=== PATIENT | male | born 1945 | race Caucasian/White ===

== ENCOUNTER → 2016-04-07 | Outpatient (CLI) | payer MEDICARE, OTHER | LOC: OD 11:30 | PROVIDERS: ATTEND Radiology Radiation Oncology | DX: C61 Malignant neoplasm of prostate (principal); R97.20 Elevated prostate specific antigen [PSA] | CPT/HCPCS: 36415; 84153 ==

== ENCOUNTER → 2016-07-07 | Outpatient (CLI) | payer MEDICARE, OTHER | LOC: OD 10:55 | PROVIDERS: ATTEND Radiology Radiation Oncology | DX: C61 Malignant neoplasm of prostate (principal); R97.20 Elevated prostate specific antigen [PSA] | CPT/HCPCS: 36415; 84153 ==

== ENCOUNTER → 2016-10-07 | Outpatient (CLI) | payer MEDICARE, OTHER | LOC: OD 11:35 | PROVIDERS: ATTEND Radiology Radiation Oncology | DX: C61 Malignant neoplasm of prostate (principal); R97.20 Elevated prostate specific antigen [PSA] | CPT/HCPCS: 36415; 84153 ==

== ENCOUNTER → 2017-01-06 | Outpatient (CLI) | payer MEDICARE, OTHER | LOC: OD 14:22 | PROVIDERS: ATTEND Radiology Radiation Oncology | DX: C61 Malignant neoplasm of prostate (principal); R97.21 Rising PSA following treatment for malignant neoplasm of prostate | CPT/HCPCS: 36415; 84153 ==

== ENCOUNTER → 2017-06-08 | Outpatient (CLI) | payer MEDICARE, OTHER | LOC: OD 11:00 | PROVIDERS: ATTEND Radiology Radiation Oncology | DX: C61 Malignant neoplasm of prostate (principal); R97.20 Elevated prostate specific antigen [PSA] | CPT/HCPCS: 36415; 84153 ==

== ENCOUNTER 2017-07-23 19:47 | Emergency (ER) | payer MEDICARE, OTHER ==
[2017-07-23 21:32] LABS: ABSOLUTE EOSINOPHILS # (AUTO) 0.1 10^3/uL (0.0-0.6); ABSOLUTE LYMPHOCYTES (AUTO) 0.9 10^3/uL (0.5-4.7); ABSOLUTE NEUT (AUTO) 5.3 10^3/uL (1.7-8.2); BASOPHILS % (AUTO) 0.4 % (0-2); EOSINOPHILS % (AUTO) 1.4 % (0-6); HEMATOCRIT 37.6 % (37.9-51.0); HEMOGLOBIN 13.1 g/dL (13.5-17.0); LYMPHOCYTES % (AUTO) 12.4 % (13-45); MEAN CORPUSCULAR HEMOGLOBIN 34.7 pg (27.0-33.4); MEAN CORPUSCULAR HGB CONC 34.9 g/dL (32.0-36.0); MEAN CORPUSCULAR VOLUME 99 fl (80-97); MONOCYTES % (AUTO) 13.4 % (3-13); PLATELET COUNT 168 10^3/uL (150-450); RED BLOOD COUNT 3.79 10^6/uL (4.35-5.55); RED CELL DISTRIBUTION WIDTH 12.3 % (11.5-14.0); SEGMENTED NEUTROPHILS % (AUTO) 72.4 % (42-78); TOTAL CELLS COUNTED % (AUTO) 100 %; WHITE BLOOD COUNT 7.4 10^3/uL (4.0-10.5)
[2017-07-23] MEDS ORDERED: MAG HYDROX/AL HYDROX/SIMETH SUSP 30 ML UDCUP PO ONE (21:46)
[2017-07-23] MEDS ORDERED: METOCLOPRAMIDE HCL ORAL SOLN 10 MG/10 ML UDCUP PO ONE (21:46)
[2017-07-23] MEDS ORDERED: LORAZEPAM 1 MG TABLET PO ONE (21:46)
[2017-07-23] MEDS ORDERED: LIDOCAINE 2% VISCOUS SOLN 20 ML UDCUP PO ONE (21:46)
[2017-07-23 21:52] LABS: ANION GAP 9 (5-19); BLOOD UREA NITROGEN 18 mg/dL (7-20); CALCIUM 9.5 mg/dL (8.4-10.2); CARBON DIOXIDE 32 mmol/L (22-30); CHLORIDE 101 mmol/L (98-107); GLUCOSE 110 mg/dL (75-110); POTASSIUM 3.7 mmol/L (3.6-5.0); SODIUM 141.9 mmol/L (137-145)
--- NOTE | 2017-07-23 21:52 | ER Document Report ---
ED General - General Chief Complaint: Chest Pain Stated Complaint: CHEST PAIN Time Seen by Provider: 07/23/17 20:29 Notes: Patient is a 71-year-old male with a past medical history of hypertension, hyperlipidemia, who presents with 3 days of epigastric abdominal discomfort and intermittent chest burning since eating "bad shrimp cocktail sauce". He describes it as a burning, heaviness sensation in his upper abdomen and lower chest. He notes that he has been belching and having a bitter taste in the back of his mouth. He has not turning to improve his symptoms. Nothing worsens his symptoms. Symptoms have overall been improving since onset. He denies any associated nausea, vomiting, diaphoresis or shortness of breath. No pain radiating to the arms, jaw or back. Patient also notes that he has had 1 week of throbbing, constant, aching pain to his left ankle that has been worsening after he apparently fell and twisted the area. He has not yet seen his general doctor regarding any of the above concerns. TRAVEL OUTSIDE OF THE [place] IN LAST 30 DAYS: No Past Medical History - General Information source: Patient - Social History Smoking Status: Never Smoker Frequency of alcohol use: None Drug Abuse: None Lives with: Spouse/Significant other Family History: Reviewed & Not Pertinent Review of Systems - Review of Systems Notes: Constitutional: Negative for fever. HENT: Negative for sore throat. Eyes: Negative for visual changes. Cardiovascular: Positive for chest pain. Respiratory: Negative for shortness of breath. Gastrointestinal: Positive for epigastric abdominal pain Genitourinary: Negative for dysuria. Musculoskeletal: Positive for left ankle pain Skin: Negative for rash. Neurological: Negative for headaches, weakness or numbness. 10 point ROS negative except as marked above and in HPI. Physical Exam - Vital signs Vitals: Temp Pulse Resp BP Pulse Ox 97.7 F 76 20 117/81 96 07/23/17 20:09 07/23/17 20:09 07/23/17 20:09 07/23/17 20:07/23/17 20:09 Interpretation: Normal Notes: PHYSICAL EXAMINATION: GENERAL: Well-appearing, well-nourished and in no acute distress. HEAD: Atraumatic, normocephalic. EYES: Pupils equal round and reactive to light, extraocular movements intact, sclera anicteric, conjunctiva are normal. ENT: nares patent, oropharynx clear without exudates. Moist mucous membranes. NECK: Normal range of motion, supple without lymphadenopathy LUNGS: Breath sounds clear to auscultation bilaterally and equal. No wheezes rales or rhonchi. HEART: Regular rate and rhythm without murmurs ABDOMEN: Soft, nontender, normoactive bowel sounds. No guarding, no rebound. No masses appreciated. EXTREMITIES: Mild swelling and edema to the left ankle with limited dorsi and plantar flexion secondary to pain NEUROLOGICAL: No focal neurological deficits. Moves all extremities spontaneously and on command. PSYCH: Normal mood, normal affect. SKIN: Warm, Dry, normal turgor, ecchymosis over the lateral malleolus of the left ankle Course - Re-evaluation Re-evalutation: 07/23/17 21:47 Patient presents with abdominal bloating and chest burning for the past 3 days ever since he ate "bad cocktail sauce". Low clinical suspicion for ACS given clinical history, exam, EKG without ST elevations or depressions, and negative initial troponin. HEART score less than or equal to 3. PE also seems unlikely given clinical history, absence of tachycardia or dyspnea. Wells score is 0. CXR without evidence of pneumothorax or pneumonia. No widened mediastinum. Aortic dissection also seems unlikely given history, symmetric pulses, CXR, and vitals. Given the patient's symptoms are not really consistent with ACS and has been having symptoms ongoing for the past 3 days I do not see indication for serial troponin markers. The patient is also complaining about left ankle pain after apparently "rolling" his ankle one week ago. Suspect likely ligamentous strain as there is bruising swelling along the medial malleolus aspect. The patient has not been rehabbing the area after injuring it seeing he continued to try to walk and push through the injury and that this has progressively worsened the pain. X-ray does not show any acute fracture or dislocation. An Carloz wrap has been applied, orthopedic follow-up has been recommended and I have encouraged him to ice and rest the area. At this time will discharge with return precautions and follow-up recommendations. Verbal discharge instructions given a the bedside and opportunity for questions given. Medication warnings reviewed. Patient is in agreement with this plan and has verbalized understanding of return precautions and the need for primary care follow-up in the next 24-72 hours. - Vital Signs Vital signs: Temp Pulse Resp BP Pulse Ox 98.1 F 76 15 157/78 H 94 07/23/17 23:01 07/23/17 20:09 07/23/17 23:01 07/23/17 23:01 07/23/17 23:01 - Laboratory Result Diagrams: 07/23/17 21:28 07/23/17 21:28 Laboratory results interpreted by me: 07/23/17 07/23/17 21:28 21:28 RBC 3.79 L Hgb 13.1 L Hct 37.6 L MCV 99 H MCH 34.7 H Lymphocytes % 12.4 L Monocytes % 13.4 H Carbon Dioxide 32 H - Diagnostic Test Radiology reviewed: Image reviewed, Reports reviewed Radiology results interpreted by me: 07/23/17 21:51 Chest x-ray: No acute infiltrate or pneumothorax Left ankle x-ray: No acute fracture or dislocation, soft tissue swelling - EKG Interpretation by Me Additional EKG results interpreted by me: 07/23/17 21:52 Sinus rhythm. Rate 78. No ST elevations or depressions. QTC is 461. Discharge - Discharge Clinical Impression: Chest discomfort, Stomach upset, Essential hypertension Left ankle sprain Qualifiers: Encounter type: initial encounter Involved ligament of ankle: unspecified ligament Qualified Code(s): S93.402A - Sprain of unspecified ligament of left ankle, initial encounter Condition: Good Disposition: HOME, SELF-CARE Additional Instructions: You were seen today for chest pain. The exact cause of your pain is unclear. However, based on your cardiac enzyme testing, chest x-ray, and EKG it does not appear that it is from an immediately life-threatening cause at this time. Although your testing here is normal is critical that you follow-up with your primary care physician for continued evaluation of this chest pain and possible stress testing. I recommended you see your physician within the next 24-48 hours to be evaluated for consideration of a stress test. Please return to emergency department immediately if you have worsening of your chest pain, shortness of breath, vomiting, become unable to exert yourself due to pain or difficulty breathing, you pass out, or have any pain that radiates into your arms, jaw, or back. Please also return if you have any additional symptoms that are concerning to you. I would recommend that you begin taking famotidine 40 mg twice daily which can be purchased [id number] as her symptoms are likely related to the food that you ate recently. Your x-ray does not show any acute fracture today. You likely have a ligamentous strain. You should continue to take anti-inflammatories such as ibuprofen 600 mg every 6 hours. Continue to apply ice to the area is much your able. Please follow-up with your primary care physician if you do not have improving your symptoms in the next 1-2 weeks. Please return immediately if you develop weakness, numbness, spreading redness from the area, or any other symptoms that are concerning to you. Referrals: RADHA MCRAE MD [Primary Care Provider] - Follow up in 3-5 days
--- NOTE | 2017-07-23 22:30 | RADIOLOGY REPORT (SQ) ---
EXAM DESCRIPTION: ANKLE LEFT COMPLETE COMPLETED DATE/TIME: 07/23/2017 10:23 pm REASON FOR STUDY: pain, swelling COMPARISON: None. NUMBER OF VIEWS: Three views. TECHNIQUE: AP, lateral, and oblique radiographic images acquired of the left ankle. LIMITATIONS: Positioning. FINDINGS: MINERALIZATION: Normal. BONES: Old lateral malleolar fracture. No acute fracture or dislocation. No worrisome bone lesions. JOINTS: No effusions. SOFT TISSUES: Vascular calcifications. OTHER: No other significant finding. IMPRESSION: NO RADIOGRAPHIC EVIDENCE OF ACUTE INJURY. TECHNICAL DOCUMENTATION: JOB ID: [id number] [employer]- All Rights Reserved Reading location - IP/workstation name: [email or web address]
--- NOTE | 2017-07-23 22:31 | RADIOLOGY REPORT (SQ) ---
EXAM DESCRIPTION: CHEST SINGLE VIEW COMPLETED DATE/TIME: 07/23/2017 10:23 pm REASON FOR STUDY: chest pain COMPARISON: None. EXAM PARAMETERS: NUMBER OF VIEWS: One view. TECHNIQUE: Single frontal radiographic view of the chest acquired. RADIATION DOSE: NA LIMITATIONS: None. FINDINGS: LUNGS AND PLEURA: No opacities, masses or pneumothorax. No pleural effusion. MEDIASTINUM AND HILAR STRUCTURES: No masses. Contour normal. HEART AND VASCULAR STRUCTURES: Heart normal in size. Normal vasculature. BONES: No acute findings. HARDWARE: None in the chest. OTHER: No other significant finding. IMPRESSION: NO ACUTE RADIOGRAPHIC FINDING IN THE CHEST. TECHNICAL DOCUMENTATION: JOB ID: [id number] [employer]- All Rights Reserved Reading location - IP/workstation name: [email or web address]
--- NOTE | 2017-07-23 23:07 | EKG REPORT ---
SEVERITY:- ABNORMAL ECG - SINUS RHYTHM LEFT VENTRICULAR HYPERTROPHY NONSPECIFIC T ABNORMALITIES, INFERIOR LEADS : Confirmed by: Tricia Olvera 23-Jul-2017 23:06:33
[2017-07-23 23:50] VITALS: BP 157/78
== END 2017-07-23 23:15 | disposition home or self-care (01) ==
LOC: ER 19:47
DX: S93.402A Sprain of unspecified ligament of left ankle, initial encounter (principal); R10.13 Epigastric pain; X58.XXXA Exposure to other specified factors, initial encounter; I10 Essential (primary) hypertension
CPT/HCPCS: 93005; 99285; 36415; 85025; 80048; 84484; 73610; 71045; 93010; J3490; A9270 ×2

== ENCOUNTER → 2017-10-13 | Outpatient (CLI) | payer MEDICARE, OTHER | LOC: OD 08:48 | PROVIDERS: ATTEND Radiology Radiation Oncology | DX: C61 Malignant neoplasm of prostate (principal); R97.20 Elevated prostate specific antigen [PSA] | CPT/HCPCS: 36415; 84153 ==

== ENCOUNTER 2018-04-29 00:29 | Emergency (ER) | payer MEDICARE, OTHER ==
[2018-04-29] MEDS ORDERED: FENTANYL CITRATE INJ/PF 100 MCG/2 ML AMPUL IV ONE ×2 (00:41→03:27)
--- NOTE | 2018-04-29 00:45 | ER Document Report ---
ED General - General Chief Complaint: Abdominal Pain Stated Complaint: ABDOMINAL PAIN Time Seen by Provider: 04/29/18 00:33 Primary Care Provider: AUSTIN ADAME DO [Primary Care Provider] - Follow up as needed Notes: Patient 72-year-old male presents to the emergency department for left lower abdominal pain for the last 5 days. Patient's denying any nausea, vomiting, diarrhea, fever. Patient states he does feel as though he had the chills last evening. Patient is complaining of some generalized dysuria. Patient states he does have a history of acute renal failure states he was seen by a blocker and cutter contact lens for a short period of time and then his kidneys "got better." Patient states this was multiple years ago. Patient is denying any respiratory distress or chest pain. Patient states when he does try to take a deep breath or cough he does notice that he has increased pain in his left lower abdomen. Past medical history: Acute renal failure, prostate cancer, seizures Medications: Patient is unsure Allergies: Phenobarbital, Paxil TRAVEL OUTSIDE OF THE [place] IN LAST 30 DAYS: No - Related Data Allergies/Adverse Reactions: paroxetine [From Paxil] Allergy (Verified 04/29/18 01:13) phenobarbital Allergy (Verified 04/29/18 01:12) Past Medical History - General Information source: Patient - Social History Smoking Status: Unknown if Ever Smoked Family History: Reviewed & Not Pertinent Renal/ Medical History: Denies: Hx Peritoneal Dialysis Past Surgical History: Reports: Hx Orthopedic Surgery Review of Systems - Review of Systems Constitutional: See HPI EENT: No symptoms reported Cardiovascular: No symptoms reported Respiratory: See HPI Gastrointestinal: See HPI Genitourinary: See HPI Male Genitourinary: See HPI Musculoskeletal: No symptoms reported Skin: No symptoms reported Hematologic/Lymphatic: No symptoms reported Neurological/Psychological: No symptoms reported Physical Exam - Vital signs Vitals: Resp BP Pulse Ox 20 147/85 H 96 04/29/18 00:34 04/29/18 00:34 04/29/18 00:34 - Notes Notes: GENERAL: Alert, interacts well. No acute distress. HEAD: Normocephalic, atraumatic. EYES: Pupils equal, round, and reactive to light. Extraocular movements intact. ENT: Oral mucosa moist, tongue midline. NECK: Full range of motion. Supple. Trachea midline. LUNGS: Clear to auscultation bilaterally, no wheezes, rales, or rhonchi. No respiratory distress. HEART: Regular rate and rhythm. No murmur ABDOMEN: Soft, generalized left lower abdominal tenderness noted, non-distended. Bowel sounds present in all 4 quadrants. EXTREMITIES: Moves all 4 extremities spontaneously. No edema, normal radial and dorsalis pedis pulses bilaterally. No cyanosis. BACK: no cervical, thoracic, lumbar midline tenderness. No saddle anesthesia, normal distal neurovascular exam. NEUROLOGICAL: Alert and oriented x3. Normal speech. cranial nerves II through XII grossly intact PSYCH: Normal affect, normal mood. SKIN: Warm, dry, normal turgor. No rashes or lesions noted. Genitals: Centerpuncher Zuleyma KENDRICK, uncircumcised penis, no active discharge at the meatus, bilateral testicles descended no erythema or tenderness noted. Course - Re-evaluation Re-evalutation: Patient's labs show no signs of leukocytosis, patient's potassium was noted to be 3.0. No signs of urinary tract infection. Patient CT did show signs of acute sigmoid diverticulitis with no abscess formation. Patient was treated with potassium and magnesium in the emergency department. Patient's EKG showed a sinus rhythm with a first-degree AV block at a rate of 93 QTC 478, no ST segment elevations or depressions noted. After pain medication patient states he overall feels a lot better. Discussed diagnosis of diverticulosis and low potassium. Patient states "oh yeah I have potassium at home for that." States his primary care provider did place him on oral potassium due to low potassium. Discussed need to continue to take that medication at home and follow-up with primary care provider for repeat lab testing. Patient voices understanding is stable for discharge. - Vital Signs Vital signs: Temp Pulse Resp BP Pulse Ox 98.1 F 14 147/85 H 95 04/29/18 00:41 04/29/18 00:35 04/29/18 00:34 04/29/18 00:35 - Laboratory Result Diagrams: 04/29/18 00:45 04/29/18 00:45 Laboratory results interpreted by me: 04/29/18 04/29/18 04/29/18 00:45 00:45 01:29 RBC 3.89 L Hgb 13.4 L MCV 98 H MCH 34.6 H Potassium 3.0 L* Chloride 97 L BUN 22 H Urine Ascorbic Acid 20 H Discharge - Discharge Clinical Impression: Diverticulitis, Hypokalemia Condition: Stable Disposition: HOME, SELF-CARE Instructions: [facility]icul[facility] Hypokalemia ([facility]) Additional Instructions: As we discussed you have been seen and treated in the emergency department for diverticulitis and low potassium. Her potassium has been replaced through your IV. It is very important that you take your oral potassium medications and follow-up with your primary care provider in the next 24-48 hours for repeat testing. Please also take antibiotics for your diverticulitis. Please take pain medications only as needed. Remember pain medications may make you constipated so he would also like to take stool softeners. Please stay well- hydrated and again follow-up with your primary care provider in the next 24-48 hours. Please return to the emergency room should he have any other concerning symptoms. Prescriptions: Amox Tr/Potassium Clavulanate [Augmentin 875-125 Tablet] 1 tab PO BID 10 Days tablet Morphine Sulfate [Morphine Ir 15 Mg Tablet] 15 mg PO Q4H PRN #12 tablet PRN Reason: Referrals: AUSTIN ADAME, [Primary Care Provider] - Follow up as needed
[2018-04-29 00:56] LABS: ABSOLUTE EOSINOPHILS # (AUTO) 0.1 10^3/uL (0.0-0.6); ABSOLUTE MONOCYTES (AUTO) 0.5 10^3/uL (0.1-1.4); ABSOLUTE NEUT (AUTO) 4.5 10^3/uL (1.7-8.2); BASOPHILS % (AUTO) 0.6 % (0-2); EOSINOPHILS % (AUTO) 1.8 % (0-6); HEMOGLOBIN 13.4 g/dL (13.5-17.0); LYMPHOCYTES % (AUTO) 16.1 % (13-45); MEAN CORPUSCULAR HEMOGLOBIN 34.6 pg (27.0-33.4); MEAN CORPUSCULAR HGB CONC 35.4 g/dL (32.0-36.0); MEAN CORPUSCULAR VOLUME 98 fl (80-97); MONOCYTES % (AUTO) 8.2 % (3-13); PLATELET COUNT 218 10^3/uL (150-450); RED BLOOD COUNT 3.89 10^6/uL (4.35-5.55); RED CELL DISTRIBUTION WIDTH 11.8 % (11.5-14.0); SEGMENTED NEUTROPHILS % (AUTO) 73.3 % (42-78); TOTAL CELLS COUNTED % (AUTO) 100 %; WHITE BLOOD COUNT 6.1 10^3/uL (4.0-10.5)
[2018-04-29 01:13] LABS: ALANINE AMINOTRANSFERASE 35 U/L (21-72); ALBUMIN 4.2 g/dL (3.5-5.0); ALKALINE PHOSPHATASE 76 U/L (38-126); ANION GAP 13 (5-19); ASPARTATE AMINO TRANSFERASE 46 U/L (17-59); BILIRUBIN,DIRECT 0.3 mg/dL (0.0-0.4); BILIRUBIN,TOTAL 0.6 mg/dL (0.2-1.3); BLOOD UREA NITROGEN 22 mg/dL (7-20); CARBON DIOXIDE 29 mmol/L (22-30); CHLORIDE 97 mmol/L (98-107); GLUCOSE 107 mg/dL (75-110); SODIUM 138.8 mmol/L (137-145); TOTAL PROTEIN 6.9 g/dL (6.3-8.2)
[2018-04-29 01:49] LABS: APPEARANCE,URINE CLEAR; BILIRUBIN,URINE NEGATIVE (NEGATIVE); COLOR,URINE YELLOW; GLUCOSE, URINE NEGATIVE (NEGATIVE); KETONES,URINE NEGATIVE (NEGATIVE); LEUKOCYTE ESTERASE,URINE NEGATIVE (NEGATIVE); NITRITE,URINE NEGATIVE (NEGATIVE); PROTEIN,URINE NEGATIVE (NEGATIVE); URINE SPECIFIC GRAVITY 1.024; UROBILINOGEN,URINE NEGATIVE mg/dL (<2.0)
[2018-04-29] MEDS ORDERED: RINGERS SOLUTION,LACTATED 1,000 ML IV ONE (01:49)
--- NOTE | 2018-04-29 01:56 | RADIOLOGY REPORT (SQ) ---
EXAM DESCRIPTION: CT ABDOMEN PELVIS WITH IV CONTRAST COMPLETED DATE/TME: 04/29/2018 00:41 CLINICAL HISTORY: 72 years, Male, LLQ pain COMPARISON: None. TECHNIQUE: 418 Images stored on PACS. All CT scanners at this facility use dose modulation, iterative reconstruction, and/or weight based dosing when appropriate to reduce radiation dose to as low as reasonably achievable (ALARA). [facility]: Dose Right [facility]: CareDose [facility]: Dose Right [facility]: Teradose 4D [facility]: [employer] LIMITATIONS: None. FINDINGS: Limited evaluation of the lung bases is unremarkable. Osseous structures are grossly intact. Diffuse fatty infiltrative change to the liver. Briskly enhancing 1.4 x 1.5 cm lesion near the dome of the liver likely reflects flash fill hemangioma. The spleen, adrenal glands, pancreas, kidneys are unremarkable. Normal appendix. No gross evidence for bowel obstruction. Large amount of stool in the colon. Sigmoid and descending colons however tracheal lordosis with mild wall thickening of the sigmoid colon and surrounding inflammation consistent with diverticulitis. No abscess, free air, or free fluid IMPRESSION: Acute sigmoid diverticulitis. No abscess, free air, or free fluid. Fatty infiltrative change to the liver. Probable hemangioma in the right hepatic lobe. TECHNICAL DOCUMENTATION: Quality ID # 436: Final reports with documentation of one or more dose reduction techniques (e.g., Automated exposure control, adjustment of the mA and/or kV according to patient size, use of iterative reconstruction technique) copyright 2010 [employer]- All Rights Reserved
[2018-04-29] MEDS: MAGNESIUM SULFATE/D5W 1 GM/100 ML RTUPB IV SCH ×2 (03:17→04:20)
[2018-04-29] MEDS: POTASSI CL 20 MEQ/50 ML RIDER 20 MEQ/50 ML RTUPB IV SCH ×2 (03:21→05:03)
[2018-04-29 06:56] VITALS: BP 148/82
--- NOTE | 2018-04-29 12:27 | EKG REPORT ---
SEVERITY:- ABNORMAL ECG - SINUS RHYTHM FIRST DEGREE AV BLOCK BORDERLINE PROLONGED QT INTERVAL : Confirmed by: Eloise Martinez MD 29-Apr-2018 12:26:29
== END 2018-04-29 06:56 | disposition home or self-care (01) ==
LOC: ER 00:29
DX: K57.92 Diverticulitis of intestine, part unspecified, without perforation or abscess without bleeding (principal); E87.6 Hypokalemia; R30.0 Dysuria; R10.32 Left lower quadrant pain
CPT/HCPCS: 93005; 99284; 96361; 96375; 96365; 96366; 36415; 87086; 83690; 85025; 80053; 81001; 74177; 93010; J3010; J3475; J3480; J7120

== ENCOUNTER → 2018-05-07 | Outpatient (CLI) | payer MEDICARE, OTHER | LOC: OD 10:50 | PROVIDERS: ATTEND Radiology Radiation Oncology | DX: C61 Malignant neoplasm of prostate (principal); R97.20 Elevated prostate specific antigen [PSA] | CPT/HCPCS: 36415; 84153 ==